=== PATIENT | male | born 1995 | race Caucasian/White ===

== ENCOUNTER 2023-09-12 18:00 | Emergency (ER) | payer OTHER ==
[~2023-09-12] VITALS: Ht 182.9 cm; Wt 78.0 kg
[2023-09-12 18:58] LABS: APPEARANCE,URINE CLEAR (CLEAR); BILIRUBIN,URINE NEGATIVE (NEGATIVE); BLOOD, URINE NEGATIVE Ery/uL (NEGATIVE); COLOR,URINE YELLOW (YELLOW); KETONES,URINE NEGATIVE (NEGATIVE); LEUKOCYTE ESTERASE ,URINE NEGATIVE (NEGATIVE); NITRITE, URINE NEGATIVE (NEGATIVE); PH,URINE 5.5 (5.0-8.0); PROTEIN,URINE NEGATIVE (NEGATIVE); UGLUCOSE NEGATIVE (NEGATIVE); UROBILINOGEN,URINE 0.2 EU/dL (0.2)
[2023-09-12] MEDS ORDERED: IBUPROFEN 600 MG TABLET PO ONE (19:00)
[2023-09-12] MEDS ORDERED: CEFTRIAXONE 1 G VIAL IM ONE (19:00)
[2023-09-12] MEDS ORDERED: CEFTRIAXONE 1 G VIAL ONE (19:18)
[2023-09-12] MEDS ORDERED: LIDOCAINE /MPF 1% VIAL 5 ML VIAL ONE (19:19)
[2023-09-12] MEDS ORDERED: DOXY-326 PO ×2 (19:39→19:50)
[2023-09-12 20:04] VITALS: BP 128/76; TEMP 98.1; O2SAT 100
== END 2023-09-12 19:55 | disposition home or self-care (01) ==
LOC: ER 18:00
DX: N45.1 Epididymitis (principal)
CPT/HCPCS: 99285; 96372; 76870; 81003; J0696; J3490